=== PATIENT | female | born 1995 | race Caucasian/White ===

== ENCOUNTER 2017-09-01 09:15 | Inpatient (IN) | payer MEDICAID, OTHER ==
[~2017-09-01] VITALS: Ht 152.4 cm; Wt 70.0 kg
[~2017-09-01 09:15] MED LIST: DENIES; FER325 PO; IBUP-1542 PO
[2017-09-01 09:16] VITALS: Ht 152.4 cm; Wt 70.0 kg
[2017-09-01] MEDS ORDERED: METOCLOPRAMIDE 10 MG INJ IV ONE (09:30)
[2017-09-01] MEDS ORDERED: SOD CHLORIDE 0.9% 1,000 ML IV ONE (09:30)
--- NOTE | 2017-09-01 10:19 | RADRPT ---
PROCEDURE: US OB. CLINICAL INDICATION: Pelvic pain. TECHNIQUE: Transabdominal and transvaginal imaging of the uterus was performed. COMPARISON: 11/09/2015. FINDINGS: A single intrauterine is present with identification of a gestational sac, pole, and yolk sac. [place] rump length measures 5.3 cm, corresponding to a gestational age of 12 weeks 0 days. Real time examination shows cardiac activity. The heart rate is 179 beats per minute. No myoma or adnexal mass. Bilateral ovaries are not seen. IMPRESSION: Single viable intrauterine gestation of approximately 12 weeks 0 days. The estimated date of delive ry is 03/16/2017 on the basis of this examination. Examination is within normal limits. RPTAT: EE .Ryan Dodge MD, Date Time Electronically viewed and signed by .Ryan Dodge MD, MD on 09/01/2017 10:19 .C/
[2017-09-01 10:24] LABS: ABNORMAL IP MESSAGE 1; BASOPHILS % 0.1 % (0.0-2.0); EOSINOPHILS % 0.2 % (0.0-7.0); HEMATOCRIT 33.1 % (37.0-47.0); HEMOGLOBIN 11.4 g/dl (12.0-16.0); LYMPHOCYTES # 0.6 10^3/ul (0.8-2.9); LYMPHOCYTES % 4.4 % (18.0-55.0); MEAN CORPUSCULAR HEMOGLOBIN 29.8 pg (29.0-33.0); MEAN CORPUSCULAR HGB CONC 34.4 g/dl (32.0-37.0); MEAN CORPUSCULAR VOLUME 86.6 fl (72.0-104.0); MEAN PLATELET VOLUME 10.2 fl (7.4-10.4); MONOCYTE # 0.6 10^3/ul (0.3-0.9); NEUTROPHIL # 11.2 10^3/ul (1.6-7.5); NEUTROPHILS % 89.8 % (30.0-74.0); PLATELET COUNT 195 10^3/UL (140-415); RED BLOOD COUNT 3.82 10^6/ul (4.20-5.40); RED CELL DISTRIBUTION WIDTH 12.9 % (11.5-14.5); WHITE BLOOD COUNT 12.4 10^3/ul (4.8-10.8)
[2017-09-01 10:35] LABS: POSITIVE DIFF @See below
--- NOTE | 2017-09-01 10:42 | RADRPT ---
PROCEDURE: US Abdomen. CLINICAL INDICATION: Abdominal pain TECHNIQUE: Multiple real-time images were acquired of the patient's abdomen and retroperitoneum ut ilizing a high resolution transducer. COMPARISON: None FINDINGS: The liver demonstrates normal echogenicity and normal size . No focal hepatic lesions. Patent portal vein. Normal gallbladder without gallstones, pericholecystic fluid or gallbladder wall thickening. Negative sonographic Raines's sign. No intrahepatic or extrahepatic biliary dilatation. The common bile duct measures 3.3 mm in maximal dimension. The visualized portions of the pancreas are normal . Normal spleen size and normal echogenicity measuring 11.3 cm. The kidneys are normal size, and demonstrate normal echogenicity and morphology. The right kidney m easures 11.2 cm. The left kidney measures 11.5 cm. No hydronephrosis or perinephric fluid collecti ons. There are no areas of increased echogenicity to suggest nephrolithiasis. Normal caliber aorta and IVC. No peritoneal free fluid. IMPRESSION: Normal abdominal ultrasound. RPTAT:AAJJ Physician Vazquez Date Time Electronically viewed and signed by Physician Vazquez on 09/01/2017 10:41 /
[2017-09-01 10:47] LABS: ALBUMIN 4.1 g/dl (3.3-4.9); ALBUMIN/GLOBULIN RATIO 1.13; BILIRUBIN,INDIRECT 1.1 mg/dl (0-1.1); BILIRUBIN,TOTAL 1.1 mg/dl (0.2-1.3); CALCIUM 9.2 mg/dl (8.4-10.2); CREATININE 0.59 mg/dl (0.44-1.00); POTASSIUM 3.6 mmol/L (3.5-5.1); TOTAL PROTEIN 7.7 g/dl (6.1-8.1)
[2017-09-01 10:48] LABS: ADD UMIC YES; UR ASCORBIC ACID NEGATIVE (NEGATIVE); UR BACTERIA FEW /HPF (NONE SEEN); UR BILIRUBIN (Dip) NEGATIVE (NEGATIVE); UR BLOOD (Dip) 2+ mg/dL (NEGATIVE); UR CLARITY CLOUDY (CLEAR); UR COLOR AMBER (YELLOW); UR GLUCOSE (Dip) NEGATIVE (NEGATIVE); UR KETONES (Dip) TRACE mg/dL (NEGATIVE); UR LEUKOCYTE ESTERASE (Dip) 3+ Leu/ul (NEGATIVE); UR MUCUS MANY /HPF (NONE SEEN); UR NITRITE (Dip) POSITIVE (NEGATIVE); UR NONSQUAMOUS EPITHELIAL CELL 5 /HPF (NONE SEEN); UR RBC 9 /HPF (0-5); UR SPECIFIC GRAVITY (Dip) 1.013 (1.003-1.030); UR SQUAMOUS EPITHELIAL CELL MANY /HPF (FEW); UR TOTAL PROTEIN (Dip) 2+ mg/dl (NEGATIVE); UR UROBILINOGEN (Dip) NEGATIVE (NEGATIVE)
[2017-09-01] MEDS ORDERED: CEFTRIAXONE 1 GM/50 ML (PMX) 50 ML IVPB ONE (12:00)
[2017-09-01] MEDS ORDERED: ACETAMINOPHEN 325 MG TAB PO ONE (12:00)
[2017-09-01] MEDS ORDERED: METO10TA92 PO (12:42)
[2017-09-01] MEDS ORDERED: CEPH-443 PO (12:42)
[2017-09-01] MEDS ORDERED: ACET500C5 PO (12:42)
[2017-09-01] MEDS ORDERED: ONDANSETRON 4 MG INJ IV PRN (13:30)
[2017-09-01] MEDS ORDERED: SOD CHLORIDE 0.9% 1,000 ML IV STA (13:30)
[2017-09-01] MEDS ORDERED: ACETAMINOPHEN 325 MG TAB PO PRN (13:30)
--- NOTE | 2017-09-01 13:32 | EN ---
Date/Time of Note Date/Time of Note DATE: 09/01/17 TIME: 13:31 ER Progress Note I have seen and evaluated the patient along with the PA and/or RISK MANAGEMENT SPECIALIST provider. I agree with the evaluation and plan of care. Please see their documentation for full ER course and evaluation. In short: She is approximately 12 weeks who presents with fever, dysuria and flank pain On exam: The patient has a benign abdominal exam without rebound or guarding or peritonitis Assessment and plan: The patient has a diagnosis of pyelonephritis based on clinical exam and urinary tract infection. Given that she is this is consistent with complicated pyelonephritis. While the patient is subjectively feeling better she still has tachycardia. We discussed the case with the on-call labors, Dr. Cruz who agrees with hospitalization. He recommends admission to the medical surgical service and he will consult. Patient has received appropriate IV antibiotics, IV fluids. A second liter of saline was ordered. Accepting care team and consultations: I discussed the current laboratory data, diagnostic imaging and emergency care provided. Admitting team: Dr. Villaseñor Admitting team indication: Insurance directed Consulting services: LIFE SCIENCES TEACHER, DESIREE Mckee MD Sep 01, 2017 13:32
--- NOTE | 2017-09-01 14:34 | ERA ---
ER Documentation Chief Complaint Date/Time DATE: 09/01/17 TIME: 14:26 Chief Complaint 11 weeks pregnat with ap HPI 22-year-old female patient who is a who is currently presents to the ED complaining of right flank pain that radiates to her right lower abdomen that started earlier this morning. Patient reports that she also has a few episodes of nonbilious nonbloody vomiting. States that she goes to a [facility] on [place] and [address] but is unsure of the name of her [facility]. Denies any vaginal bleeding, vaginal discharge, dysuria, urgency, frequency, hematuria. She reports that her last menstruation was sometime in May 2017. ROS All systems reviewed and are negative except as per history of present illness. Medications Home Meds Active Scripts Cephalexin* (Keflex*) 500 Mg Capsule, 500 MG PO Q8 for 14 Days, #42 CAP Prov:AIYANA BUITRAGO 09/04/17 Ferrous Sulfate* (Ferrous Sulfate*) 325 Mg Tabec, 325 MG PO DAILY, #30 TAB Prov:PHIL YOUNGER CLERICAL ADVISER 11/09/15 Discontinued Reported Medications [Denies] No Conflict Check 12/24/10 Discontinued Scripts Ibuprofen* (Motrin*) 600 Mg Tab, 600 MG PO Q6H Y for PAIN AND OR ELEVATED TEMP, #30 TAB Prov:PHIL YOUNGER CLERICAL ADVISER 11/09/15 Allergies Allergies: Coded Allergies: No Known Allergies (Verified Allergy, Mild, 09/01/17) PMhx/Soc Medical and Surgical Hx: pt denies Medical Hx, pt denies Surgical Hx History of Surgery: No Anesthesia Reaction: No Hx Neurological Disorder: No Hx Respiratory Disorders: No Hx Cardiac Disorders: No Hx Psychiatric Problems: No Hx Miscellaneous Medical Probl: No Hx Alcohol Use: No Hx Substance Use: Yes (marijuana) Hx Tobacco Use: Yes (occasionally) Smoking Status: Former smoker Physical Exam Vitals Vital Signs Date Time Temp Pulse Resp B/P Pulse Ox O2 Delivery O2 Flow Rate FiO2 09/01/17 09:16 99.9 120 18 100/60 99 Physical Exam Const: [id number], well-nourished. In no acute distress. Head: Atraumatic, normocephalic Eyes: Normal Conjunctiva without injection. No purulent discharge. ENT: Normal external ear, nose. Moist oropharynx without tonsillar exudates. Non -erythematous pharynx. Uvula midline. No drooling. No trismus. Neck: No cervical midline tenderness. Full range of motion. No meningismus. No cervical lymphadenopathy. No JVD. Resp: Clear to auscultation bilaterally. No wheezing, rhonchi, rales, or crackles. No accessory muscle use. No retractions. Cardio: Regular rate and rhythm. No murmurs, rubs or gallops. Abd: Soft, nontender, non distended. Normal bowel sounds. No palpable masses. No rebound tenderness. No guarding. Negative McBurney's point. Negative psoas sign. Negative obturator sign. Skin: No petechiae or rashes Back: No midline tenderness. No CVA tenderness. Ext: No cyanosis, or edema. Neur: Awake and alert. Normal gait. Normal coordination. Psych: Normal Mood and Affect Result Diagram: 09/04/1741 09/04/1741 Results 24 hrs Laboratory Tests Test 09/01/17 09:50 09/01/17 09:58 Urine Color JEREMIAH Urine Clarity CLOUDY Urine pH 6.0 Urine Specific [place] 1.013 Urine Ketones TRACEmg/dL Urine Nitrite POSITIVEmg/dL Urine Bilirubin NEGATIVEmg/dL Urine Urobilinogen NEGATIVEmg/dL Urine Leukocyte Esterase 3+Pablo/ul Urine Microscopic RBC 9/HPF Urine Microscopic WBC > 182/HPF Urine Squamous Epithelial Cells MANY/HPF Urine Bacteria FEW/HPF Urine Mucus MANY/HPF Urine Hemoglobin 2+mg/dL Urine Glucose NEGATIVEmg/dL Urine Total Protein 2+mg/dl White Blood Count 12.410^3/ul Red Blood Count 3.8210^6/ul Hemoglobin 11.4g/dl Hematocrit 33.1% Mean Corpuscular Volume 86.6fl Mean Corpuscular Hemoglobin 29.8pg Mean Corpuscular Hemoglobin Concent 34.4g/dl Red Cell Distribution Width 12.9% Platelet Count 91797^3/UL Mean Platelet Volume 10.2fl Neutrophils % 89.8% Lymphocytes % 4.4% Monocytes % 5.0% Eosinophils % 0.2% Basophils % 0.1% Nucleated Red Blood Cells % 0.0/100WBC Neutrophils # 11.210^3/ul Lymphocytes # 0.610^3/ul Monocytes # 0.610^3/ul Eosinophils # 0.010^3/ul Basophils # 0.010^3/ul Nucleated Red Blood Cells # 0.010^3/ul Sodium Level 134mmol/L Potassium Level 3.6mmol/L Chloride Level 103mmol/L Carbon Dioxide Level 21mmol/L Anion Gap 14 Blood Urea Nitrogen 5mg/dl Creatinine 0.59mg/dl Glucose Level 107mg/dl Calcium Level 9.2mg/dl Total Bilirubin 1.1mg/dl Direct Bilirubin 0.00mg/dl Indirect Bilirubin 1.1mg/dl Aspartate Amino Transf (AST/SGOT) 17IU/L Alanine Aminotransferase (ALT/SGPT) 30IU/L Alkaline Phosphatase 51IU/L Total Protein 7.7g/dl Albumin 4.1g/dl Globulin 3.60g/dl Albumin/Globulin Ratio 1.13 Lipase 43U/L Beta HCG, Quantitative 74341.0mIU/ml Current Medications Medications (Trade) Dose Ordered Sig/Nelly Route PRN Reason Start Time Stop Time Status Last Admin Dose Admin Sodium Chloride (NS) 1,000 ml @ 1,000 mls/hr Q1H ONCE IV 09/01/17 09:30 09/01/17 10:29 DC 09/01/17 10:33 Metoclopramide HCl 10 mg 10 mg ONCE ONCE IV 09/01/17 09:30 09/01/17 09:34 DC 09/01/17 10:33 Ceftriaxone Sodium (Rocephin) 50 ml @ 100 mls/hr ONCE ONCE IVPB 09/01/17 12:00 09/01/17 12:29 DC 09/01/17 12:07 Acetaminophen (Tylenol Tab) 650 mg ONCE ONCE PO 09/01/17 12:00 09/01/17 12:01 DC 09/01/17 12:07 Procedures/MDM 22-year-old female patient who is a presents to the ED complaining of right flank pain that radiates to her lower abdomen that started earlier this morning. Patient is afebrile nontoxic appearing. Patient has normal vital signs. An ultrasound, beta-hCG, CBC, type and RH, UA was ordered to evaluate patient. CBC: Leukocytosis 12.4. No anemia Urine: No elevation in nitrites, leukocyte esterase, hematuria. No evidence of UTI Rh: O positive. No indication for Rhogam at this time. beta Hc PROCEDURE: US Abdomen. CLINICAL INDICATION: Abdominal pain TECHNIQUE: Multiple real-time images were acquired of the patient's abdomen and retroperitoneum utilizing a high resolution transducer. COMPARISON: None FINDINGS: The liver demonstrates normal echogenicity and normal size . No focal hepatic lesions. Patent portal vein. Normal gallbladder without gallstones, pericholecystic fluid or gallbladder wall thickening. Negative sonographic Raines's sign. No intrahepatic or extrahepatic biliary dilatation. The common bile duct measures 3.3 mm in maximal dimension. The visualized portions of the pancreas are normal. Normal spleen size and normal echogenicity measuring 11.3 cm. The kidneys are normal size, and demonstrate normal echogenicity and morphology. The right kidney measures 11.2 cm. The left kidney measures 11.5 cm. No hydronephrosis or perinephric fluid collections. There are no areas of increased echogenicity to suggest nephrolithiasis. Normal caliber aorta and IVC. No peritoneal free fluid. IMPRESSION: Normal abdominal ultrasound. PROCEDURE: US OB. CLINICAL INDICATION: Pelvic pain. TECHNIQUE: Transabdominal and transvaginal imaging of the uterus was performed. COMPARISON: 11/09/2015. FINDINGS: A single intrauterine is present with identification of a gestational sac, pole, and yolk sac. [place] rump length measures 5.3 cm, corresponding to a gestational age of 12 weeks 0 days. Real time examination shows cardiac activity. The heart rate is 179 beats per minute. No myoma or adnexal mass. Bilateral ovaries are not seen. IMPRESSION: Single viable intrauterine gestation of approximately 12 weeks 0 days. The estimated date of delivery is 03/16/2017 on the basis of this examination. Examination is within normal limits. Patient's bleeding symptoms have stabilized while in the department.Patient has pyelonephritis based on her urinary tract infection and positive CVA tenderness. Patient has persistent tachycardia despite being treated with 1 L of normal saline. Patient does feel better after receiving Ceftriaxone, Tylenol here in the ED however due to her , she has a complicated pyelonephritis. The benefits of staying and getting admitted to the ED outweigh discharged here at the hospital. This was discussed with my supervising physician, Dr. Del Real as well as the laborist on-call, Dr. Cruz who agreed with the management. Patient will be admitted under medicine service for further evaluation and treatment. Patient has a viable at 12 weeks. Low suspicion for symptomatic anemia, ectopic , sepsis, PID, appendicitis, ovarian torsion, tubo-ovarian abscess, surgical abdomen, or other emergent conditions. Patient agreed with the admission plan. Patient is hemodynamically stable. Departure Diagnosis: Primary Impression: Right flank pain Condition: Stable MIKE BUSH PA-C Sep 01, 2017 14:34 Patient does feel better after receiving ceftriaxone, Tylenol here in the ED however due to her , she has a complicated pyelonephritis. The benefits of staying and getting admitted to the ED outweigh discharged here at the hospital. This was discussed with my supervising physician, Dr. del real as well as the glabrous on-call, Dr. Carlos Mills who agreed with the management. Patient will be admitted under medicine service for further evaluation and treatment. Patient has a viable at 12 weeks. Low suspicion for symptomatic anemia, ectopic , sepsis, PID, appendicitis, ovarian torsion, tubo-ovarian abscess, surgical abdomen, or other emergent conditions. Departure Diagnosis: Primary Impression: Right flank pain Condition: Stable MIKE BUSH PA-C Sep 01, 2017 14:34
--- NOTE | 2017-09-01 14:37 | HP ---
Date/Time of Note Date/Time of Note DATE: 09/01/17 TIME: 14:36 Assessment/Plan VTE Prophylaxis VTE Prophylaxis Intervention: SCD's Assessment/Plan Assessment/Plan 1. Right flank pain secondary to Pyelonephritis - UA + and urine cultures sent - Dr. Cruz from OB consulted by ED and agree with admission and IV antibiotics - Will give Ceftriaxone IV daily and if remains afebrile for 48 hours, will change to cephalexin PO prior to discharge - IVF NSS for gentle hydration - Reglan PRN for nausea 2. Intrauterine - Patient is currently 12 weeks with first child - Will avoid any teratogenic medications - OB consulted and appreciated input - Started on vitamins 3. Iron deficiency anemia most likely associated with - Will continue on iron supplements - monitor H/H daily 4. Leukocytosis secondary to #1 5. Diet - regular 6. DVT ppx - SCD 7. Code status - Full 8. Disposition - Admit to med/surg for IV antibiotic treatment >35 minutes was spent with patient at time of admission. All labs and imaging were personally reviewed. All patients questions were answered. HPI/ROS Admit Date/Time Admit Date/Time 09/01/17 Hx of Present Illness 22 yo F presented c/o nausea, vomiting, right flank pain, and dysuria for the past 1 day. Patient states she had severe right sided pain both anteriorly and flank area that has persisted since yesterday. She last vomited yesterday and was able to tolerate a sandwich in the ED. She denies any sick contact, dizziness, headache, chest pain, shortness of breath, or other abdominal issues. Does admit to discomfort with urination but denies any hematuria or discharge. This is patients first . ROS Constitutional: febrile, nausea, No chills, No diaphoresis, No disoriented, No fatigue Eyes: no complaints ENT: No discharge, No dysphagia, No sore throat Respiratory: No cough, No pain, No shortness of breath, No sputum, No wheezing Cardiovascular: No chest pain, No edema, No lightheadedness, No orthopenea, No palpitations Gastrointestinal: nausea, pain (right quadrant), vomiting, No constipation, No diarrhea Genitourinary: dysuria, flank pain, No bleeding, No discharge, No hematuria Musculoskeletal: No bone/joint pain, No neck pain, No swelling Skin: No erythema, No pruritis, No rash Neurologic: no complaints Endocrine: no complaints Lymphatic: no complaints Psychological: no complaints Immunologic: no complaints PMH/Family/Social Past Medical History Medical History: no pertinent history Past Surgical History Past Surgical Hx: no surgical history Family History Significant Family History: no pertinent family hx Social History Alcohol Use: none Smoking Status: Former smoker Drug Use: none Exam/Review of Systems Vital Signs Vitals Vital Signs Date Time Temp Pulse Resp B/P Pulse Ox O2 Delivery O2 Flow Rate FiO2 09/01/17 09:16 99.9 120 18 100/60 99 Exam Constitutional: alert, distress, oriented Psych: nl mood/affect Head: atraumatic, normocephalic Eyes: EOMI, PERRL, nl sclera ENMT: mucosa pink and moist, nl external ears & nose Neck: non-tender, supple Respiratory: clear to auscultation, normal air movement, No crackles/rales, No diminished breath sounds, No labored breathing, No wheezing Cardiovascular: nl pulses, other (tachycardia), No edema, No murmurs/extra sounds Gastrointestinal: bowel sounds, distended, soft, tender (right quadrant), No ascites, No rebound or guarding Musculoskeletal: nl extremities to inspection, No muscle weakness, No swelling Extremities: No calf tenderness, No clubbing, No cyanosis, No edema Neurological: COUNTER CUTTER II-XII intact, nl mental status, No confused, No focal weakness Skin: nl turgor, No ecchymosis, No laceration Lymph: nl lymph nodes Labs Result Diagram: 09/01/1795709/01/17957 Medications Medications home medications reviewed Procedures Procedures PROCEDURE: US OB. CLINICAL INDICATION: Pelvic pain. TECHNIQUE: Transabdominal and transvaginal imaging of the uterus was performed. COMPARISON: 11/09/2015. FINDINGS: A single intrauterine is present with identification of a gestational sac, pole, and yolk sac. [place] rump length measures 5.3 cm, corresponding to a gestational age of 12 weeks 0 days. Real time examination shows cardiac activity. The heart rate is 179 beats per minute. No myoma or adnexal mass. Bilateral ovaries are not seen. IMPRESSION: Single viable intrauterine gestation of approximately 12 weeks 0 days. The estimated date of delivery is 03/16/2017 on the basis of this examination. Examination is within normal limits. PROCEDURE: US Abdomen. CLINICAL INDICATION: Abdominal pain TECHNIQUE: Multiple real-time images were acquired of the patient's abdomen and retroperitoneum utilizing a high resolution transducer. COMPARISON: None FINDINGS: The liver demonstrates normal echogenicity and normal size . No focal hepatic lesions. Patent portal vein. Normal gallbladder without gallstones, pericholecystic fluid or gallbladder wall thickening. Negative sonographic Raines's sign. No intrahepatic or extrahepatic biliary dilatation. The common bile duct measures 3.3 mm in maximal dimension. The visualized portions of the pancreas are normal. Normal spleen size and normal echogenicity measuring 11.3 cm. The kidneys are normal size, and demonstrate normal echogenicity and morphology. The right kidney measures 11.2 cm. The left kidney measures 11.5 cm. No hydronephrosis or perinephric fluid collections. There are no areas of increased echogenicity to suggest nephrolithiasis. Normal caliber aorta and IVC. No peritoneal free fluid. IMPRESSION: Normal abdominal ultrasound. TORRES LUJAN MD Sep 01, 2017 14:37
[2017-09-01] MEDS ORDERED: METOCLOPRAMIDE 10 MG INJ IV PRN (15:00)
[2017-09-01] MEDS ORDERED: NACL 0.9% 3 ML SYG IV SCH (15:00)
[2017-09-01] MEDS ORDERED: DOCUSATE SODIUM 100 MG CAP PO PRN (15:00)
[2017-09-01 15:31] VITALS: BP 107/54; RESP 18
[2017-09-01] MEDS: SOD CHLORIDE 0.9% 1,000 ML IV SCH (15:58)
[2017-09-01 19:32] VITALS: BP 113/49; RESP 16
[2017-09-02 02:00] VITALS: BP 90/54; RESP 18
[2017-09-02 06:16] LABS: ABNORMAL IP MESSAGE 1; BASOPHILS % 0.1 % (0.0-2.0); EOSINOPHILS % 0.1 % (0.0-7.0); HEMATOCRIT 29.4 % (37.0-47.0); HEMOGLOBIN 10.3 g/dl (12.0-16.0); LYMPHOCYTES # 0.5 10^3/ul (0.8-2.9); LYMPHOCYTES % 5.3 % (18.0-55.0); MEAN CORPUSCULAR VOLUME 88.6 fl (72.0-104.0); MEAN PLATELET VOLUME 10.6 fl (7.4-10.4); MONOCYTE # 0.4 10^3/ul (0.3-0.9); MONOCYTES % 4.8 % (0.0-13.0); NEUTROPHIL # 7.6 10^3/ul (1.6-7.5); NEUTROPHILS % 89.2 % (30.0-74.0); PLATELET COUNT 135 10^3/UL (140-415); RED BLOOD COUNT 3.32 10^6/ul (4.20-5.40); RED CELL DISTRIBUTION WIDTH 12.9 % (11.5-14.5); WHITE BLOOD COUNT 8.6 10^3/ul (4.8-10.8)
[2017-09-02 06:18] LABS: POSITIVE DIFF @See below
[2017-09-02 06:20] LABS: CALCIUM 8.1 mg/dl (8.4-10.2); CREATININE 0.54 mg/dl (0.44-1.00); MAGNESIUM 1.6 mg/dl (1.7-2.5); POTASSIUM 3.3 mmol/L (3.5-5.1)
[2017-09-02 07:59] VITALS: BP 107/64; RESP 18
[2017-09-02] MEDS ORDERED: POTASSIUM CHLORIDE (SR) 20 MEQ TAB PO STA (08:11)
[2017-09-02] MEDS: SOD CHLORIDE 0.9% 1,000 ML IV SCH ×2 (08:32→23:51)
[2017-09-02] MEDS: FERROUS SULFATE (EC) 325 MG TAB PO SCH (08:32)
[2017-09-02] MEDS: PRENATAL VITAMIN PO SCH (08:32)
--- NOTE | 2017-09-02 08:43 | PN ---
Date/Time of Note Date/Time of Note DATE: 09/02/17 TIME: 08:39 Assessment/Plan VTE Prophylaxis VTE Prophylaxis Intervention: ambulation Lines/Catheters IV Catheter Type (from Nrsg): Peripheral IV Assessment/Plan Assessment/Plan 1. Right flank pain secondary to Pyelonephritis - Patient spiked fever of 101.3 and blood cultures sent - UA + and urine cultures still pending - Dr. Cruz from OB consulted by ED and agree with admission and IV antibiotics. Awaiting further recommendations - Continue on Ceftriaxone IV daily and if remains afebrile for 48 hours, will change to cephalexin PO prior to discharge - IVF NSS for gentle hydration - Reglan PRN for nausea 2. Intrauterine - Patient is currently 12 weeks with first child - Will avoid any teratogenic medications - OB consulted - Started on vitamins 3. Iron deficiency anemia most likely associated with - Will continue on iron supplements - monitor H/H daily 4. Hypokalemia - Replaced 5. HypoMg - Replaced 6. Disposition - Will continue on IV antibiotics and when afebrile for at least 48hr will switch to PO prior to d/c Subjective 24 Hr Interval Summary Free Text/Dictation Patient experienced fever of 101.3 and blood cultures sent. still c/o pain in right quadrant but denies any further episodes of nausea and vomiting. No acute overnight events. Exam/Review of Systems Vital Signs Vitals Vital Signs Date Time Temp Pulse Resp B/P Pulse Ox O2 Delivery O2 Flow Rate FiO2 09/02/17 07:59 101.3 119 18 107/64 98 Intake and Output 09/01/17 09/01/17 09/02/17 15:00 23:00 07:00 Intake Total 600 ml 660 ml Balance 600 ml 660 ml Exam Constitutional: alert, oriented Eyes: EOMI, PERRL, nl sclera ENMT: mucosa pink and moist, nl external ears & nose Neck: non-tender, supple Respiratory: clear to auscultation, normal air movement, No crackles/rales, No diminished breath sounds, No labored breathing, No wheezing Cardiovascular: nl pulses, other (tachycardia), No edema, No murmurs/extra sounds Gastrointestinal: bowel sounds, distended, soft, tender (right quadrant), No ascites, No rebound or guarding Musculoskeletal: nl extremities to inspection, No muscle weakness, No swelling Extremities: No calf tenderness, No clubbing, No cyanosis, No edema Neurological: ARMED GUARD II-XII intact, nl mental status, No confused, No focal weakness Skin: pale, diaphoretic, nl turgor, No ecchymosis, No laceration Lymph: nl lymph nodes Results Result Diagram: 09/02/17 0510 09/02/17509 Results 24 hrs Laboratory Tests Test 09/01/17 09:50 09/01/17 09:58 09/02/17 05:10 Urine Color JEREMIAH Urine Clarity CLOUDY A Urine pH 6.0 Urine Specific [place] 1.013 Urine Ketones TRACE A Urine Nitrite POSITIVE A Urine Bilirubin NEGATIVE Urine Urobilinogen NEGATIVE Urine Leukocyte Esterase 3+ H Urine Microscopic RBC 9 H Urine Microscopic WBC > 182 H Urine Squamous Epithelial Cells MANY A Urine Bacteria FEW A Urine Mucus MANY A Urine Hemoglobin 2+ H Urine Glucose NEGATIVE Urine Total Protein 2+ H White Blood Count 12.4 H 8.6 # Red Blood Count 3.82 L 3.32 L Hemoglobin 11.4 L 10.3 L Hematocrit 33.1 L 29.4 L Mean Corpuscular Volume 86.6 88.6 Mean Corpuscular Hemoglobin 29.8 31.0 Mean Corpuscular Hemoglobin Concent 34.4 35.0 Red Cell Distribution Width 12.9 12.9 Platelet Count 195 135 #L Mean Platelet Volume 10.2 # 10.6 H Neutrophils % 89.8 H 89.2 H Lymphocytes % 4.4 L 5.3 L Monocytes % 5.0 4.8 Eosinophils % 0.2 0.1 Basophils % 0.1 0.1 Nucleated Red Blood Cells % 0.0 0.0 Neutrophils # 11.2 H 7.6 H Lymphocytes # 0.6 L 0.5 L Monocytes # 0.6 0.4 Eosinophils # 0.0 0.0 Basophils # 0.0 0.0 Nucleated Red Blood Cells # 0.0 0.0 Sodium Level 134 L 134 L Potassium Level 3.6 3.3 L Chloride Level 103 109 Carbon Dioxide Level 21 20 L Anion Gap 14 8 Blood Urea Nitrogen 5 L 3 L Creatinine 0.59 0.54 Glucose Level 107 96 Calcium Level 9.2 8.1 L Total Bilirubin 1.1 Direct Bilirubin 0.00 Indirect Bilirubin 1.1 Aspartate Amino Transf (AST/SGOT) 17 Alanine Aminotransferase (ALT/SGPT) 30 Alkaline Phosphatase 51 Total Protein 7.7 Albumin 4.1 Globulin 3.60 H Albumin/Globulin Ratio 1.13 Lipase 43 Beta HCG, Quantitative 82932.0 Phosphorus Level 3.0 Magnesium Level 1.6 L Medications Medications Current Medications Ferrous Sulfate (Ferrous Sulfate (Ec)) 325 mg DAILY PO Last administered on 08:32; Admin Dose 325 MG; Start 09/02/17 at 09:00 Prenat Multivit/ [place]/Iron/Folic Ac 1 tab 1 tab DAILY PO Last administered on 09/02/17 08:32; Admin Dose 1 TAB; Start 09/02/17 at 09:00 Sodium Chloride (NS) 1,000 ml @ 60 mls/hr [id number] IV Last administered on 09/02 08:32; Admin Dose 60 MLS/HR; Start 09/01/17 at 14:31 Metoclopramide HCl (Reglan) 10 mg Q6H PRN IV NAUSEA AND/OR VOMITING; Start 09/01/17 at 15:00 Acetaminophen (Tylenol Tab) 650 mg Q6H PRN PO PAIN LEVEL 1-3 OR FEVER; Start 09/01/17 at 15:00 Docusate Sodium 100 mg 100 mg Q12H PRN PO CONSTIPATION; Start 09/01/17 at 15:00 Ceftriaxone Sodium (Rocephin) 50 ml @ 100 mls/hr Q24H IVPB ; Start 09/02/17 at 12:00 Potassium Chloride (Klor-Con 20) 40 meq 1215 ONCE PO ; Start 09/02/17 at 12:15 ; Stop 09/02/17 at 12:16 TORRES LUJAN MD Sep 02, 2017 08:43
[2017-09-02] MEDS ORDERED: MAGNESIUM SULFATE 2 GM/50 ML 50 ML IVPB ONE (09:30)
[2017-09-02] MEDS ORDERED: POTASSIUM CHLORIDE (SR) 20 MEQ TAB PO ONE (12:15)
--- NOTE | 2017-09-02 12:44 | QN ---
Documentation Comment Painter And Body Mechanic Apprentice consult: Thank you for consulting with us. 22 yo @12+WKS GA with dysuria and flank pain and Dx of pyelonephritis VS stable Gen NAD Abd soft NT ND +CVA tenderness Ultrasound 12 wks viable A/P 12 wks GA with Pyelonephritis 1.Continue Antibiotics 2.If there is any new symptoms ,p-lease let Painter And Body Mechanic Apprentice team know([id number]) 3.Discharge plan if afebrile for 24-48 hours 4.F/u on Urine culture 5.Abdominal amd kidney ultrasound NELLI SOUTH M.D. Sep 02, 2017 12:44
[2017-09-02] MEDS: CEFTRIAXONE 1 GM/50 ML (PMX) 50 ML IVPB SCH (13:32)
[2017-09-02 13:52] VITALS: BP 98/57; RESP 18
[2017-09-02] MEDS: ACETAMINOPHEN 325 MG TAB PO PRN ×2 (16:25→22:30)
[2017-09-02 20:00] VITALS: BP 99/55; RESP 18
[2017-09-03 02:20] VITALS: BP 97/53; RESP 18
[2017-09-03 05:11] LABS: BASOPHILS % 0.3 % (0.0-2.0); EOSINOPHILS # 0.2 10^3/ul (0.0-0.5); EOSINOPHILS % 2.3 % (0.0-7.0); HEMATOCRIT 31.3 % (37.0-47.0); HEMOGLOBIN 10.5 g/dl (12.0-16.0); MEAN CORPUSCULAR HEMOGLOBIN 29.9 pg (29.0-33.0); MEAN CORPUSCULAR HGB CONC 33.5 g/dl (32.0-37.0); MEAN CORPUSCULAR VOLUME 89.2 fl (72.0-104.0); MEAN PLATELET VOLUME 10.6 fl (7.4-10.4); MONOCYTE # 0.5 10^3/ul (0.3-0.9); MONOCYTES % 7.2 % (0.0-13.0); NEUTROPHIL # 5.1 10^3/ul (1.6-7.5); NEUTROPHILS % 74.8 % (30.0-74.0); PLATELET COUNT 141 10^3/UL (140-415); RED BLOOD COUNT 3.51 10^6/ul (4.20-5.40); RED CELL DISTRIBUTION WIDTH 13.3 % (11.5-14.5); WHITE BLOOD COUNT 6.8 10^3/ul (4.8-10.8)
[2017-09-03 05:16] LABS: CALCIUM 8.3 mg/dl (8.4-10.2); CREATININE 0.54 mg/dl (0.44-1.00); MAGNESIUM 1.9 mg/dl (1.7-2.5); PHOSPHORUS 3.2 mg/dl (2.5-4.9)
[2017-09-03 07:35] VITALS: BP 89/52; RESP 16
[2017-09-03] MEDS: PRENATAL VITAMIN PO SCH (08:26)
[2017-09-03] MEDS: ACETAMINOPHEN 325 MG TAB PO PRN ×2 (08:26→14:02)
[2017-09-03] MEDS: FERROUS SULFATE (EC) 325 MG TAB PO SCH (08:26)
--- NOTE | 2017-09-03 10:02 | PN ---
Date/Time of Note Date/Time of Note DATE: 09/03/17 TIME: 10:01 Assessment/Plan VTE Prophylaxis VTE Prophylaxis Intervention: SCD's Lines/Catheters IV Catheter Type (from Nrsg): Peripheral IV Assessment/Plan Chief Complaint/Hosp Course 1. Right flank pain secondary to Pyelonephritis - Patient spiked fever of 101.3 and blood cultures sent yesterday - UA + and urine cultures show ecoli - Dr. Cruz from OB consulted by ED and agree with admission and IV antibiotics. Awaiting further recommendations - Continue on Ceftriaxone IV daily and if remains afebrile for 48 hours, will change to cephalexin PO prior to discharge - IVF NSS for gentle hydration - Reglan PRN for nausea 2. Intrauterine - Patient is currently 12 weeks with first child - Will avoid any teratogenic medications - OB consulted - Started on vitamins 3. Iron deficiency anemia most likely associated with - Will continue on iron supplements - monitor H/H daily 4. Hypokalemia - Replaced 5. HypoMg - Replaced 6. Disposition - Will continue on IV antibiotics and when afebrile for at least 48hr will switch to PO prior to d/c Problems: Exam/Review of Systems Vital Signs Vitals Vital Signs Date Time Temp Pulse Resp B/P Pulse Ox O2 Delivery O2 Flow Rate FiO2 09/03/17 07:35 98.6 89 16 89/52 98 Intake and Output 09/02/17 09/02/17 09/03/17 15:00 23:00 07:00 Intake Total 100 ml 2100 ml 1160 ml Balance 100 ml 2100 ml 1160 ml Results Result Diagram: 09/03/17 0426 09/03/17 0429 Results 24 hrs Laboratory Tests Test 09/03/17 04:26 09/03/17 04:29 White Blood Count 6.8 # Red Blood Count 3.51 L Hemoglobin 10.5 L Hematocrit 31.3 L Mean Corpuscular Volume 89.2 Mean Corpuscular Hemoglobin 29.9 Mean Corpuscular Hemoglobin Concent 33.5 Red Cell Distribution Width 13.3 Platelet Count 141 Mean Platelet Volume 10.6 H Neutrophils % 74.8 H Lymphocytes % 15.0 L Monocytes % 7.2 Eosinophils % 2.3 Basophils % 0.3 Nucleated Red Blood Cells % 0.0 Neutrophils # 5.1 Lymphocytes # 1.0 Monocytes # 0.5 Eosinophils # 0.2 Basophils # 0.0 Nucleated Red Blood Cells # 0.0 Sodium Level 136 Potassium Level 4.0 Chloride Level 110 Carbon Dioxide Level 21 Anion Gap 9 Blood Urea Nitrogen 4 L Creatinine 0.54 Glucose Level 86 Calcium Level 8.3 L Phosphorus Level 3.2 Magnesium Level 1.9 Albumin 3.0 #L Medications Medications Current Medications Ferrous Sulfate (Ferrous Sulfate (Ec)) 325 mg DAILY PO Last administered on 08:26; Admin Dose 325 MG; Start 09/02/17 at 09:00 Prenat Multivit/ Guard Manager/Iron/Folic Ac 1 tab 1 tab DAILY PO Last administered on 09/03/17 08:26; Admin Dose 1 TAB; Start 09/02/17 at 09:00 Sodium Chloride (NS) 1,000 ml @ 60 mls/hr [id number] IV Last administered on 09/02 23:51; Admin Dose 60 MLS/HR; Start 09/01/17 at 14:31 Metoclopramide HCl (Reglan) 10 mg Q6H PRN IV NAUSEA AND/OR VOMITING; Start 09/01/17 at 15:00 Acetaminophen (Tylenol Tab) 650 mg Q6H PRN PO PAIN LEVEL 1-3 OR FEVER Last administered on 09/03/17 08:26; Admin Dose 650 MG; Start 09/01/17 at 15:00 Docusate Sodium 100 mg 100 mg Q12H PRN PO CONSTIPATION; Start 09/01/17 at 15:00 Ceftriaxone Sodium (Rocephin) 50 ml @ 100 mls/hr Q24H IVPB Last administered on 09/02/17 13:32; Admin Dose 100 MLS/HR; Start 09/02/17 at 12:00 AIYANA BUITRAGO Sep 03, 2017 10:02
[2017-09-03] MEDS: CEFTRIAXONE 1 GM/50 ML (PMX) 50 ML IVPB SCH (12:11)
--- NOTE | 2017-09-03 13:52 | PN ---
Date/Time of Note Date/Time of Note DATE: 09/03/17 TIME: 13:50 OB Subjective Subjective Subjective Patient denies f/c. Last fever around 16:30 yesterday. OB Objective Objective Objective Gen: NAD Abd: soft, NT Back: no CVAT OB Assessment/Plan Other Assessment: 22 y/o at 12 weeks with pyelonephritis Other plan: Discharge after 24 hour afebrile per primary team. Continue antibiotics for 2 weeks. F/u with OB, consider suppression antibiotics. CHRISTY SHARIF Sep 03, 2017 13:52
[2017-09-03 14:28] VITALS: BP 101/63; RESP 16
[2017-09-03] MEDS: SOD CHLORIDE 0.9% 1,000 ML IV SCH ×2 (16:31→22:35)
--- NOTE | 2017-09-03 17:47 | CONS ---
Date/Time of Note Date/Time of Note DATE: 09/03/17 TIME: 17:44 Assessment/Plan Assessment/Plan Problems: (1) Pyelonephritis affecting in first trimester Status: Acute Comment: This young lady was admitted for IV antibiotic therapy which was indicated and confirmed by our PLACER MINER colleagues. She is receiving IV antibiotics and the cultures demonstrate that she is receiving drugs appropriate for the and for the sensitivities of the isolated bacteria. In addition as clinically she is improving. There was absolute indication for her to be admitted to the hospital. She is approaching the time of discharge in the next 24 hours. As such CCS admission was indicated. Consultation Date/Type/Reason Admit Date/Time 09/01/17 Date of Consultation: Sep 03, 2017 Type of Consultation: CCS Reason for Consultation 22-year-old young lady admitted to the hospital at 12 weeks gestation with pyelonephritis and sepsis. Referring Provider: TORRES LUJAN MD Hx of Present Illness Charming 22-year-old female who was admitted at 12 weeks gestational age with pyelonephritis and sepsis. She was not able to take p.o. adequately coming in. She was admitted to the hospital for intravenous antibiotic therapy. I am asked to see her to verify for CCS purposes that she did need to be admitted. Eyes: no complaints ENT: No discharge, No dysphagia, No sore throat Respiratory: No cough, No pain, No shortness of breath, No sputum, No wheezing Cardiovascular: No chest pain, No edema, No lightheadedness, No orthopenea, No palpitations Gastrointestinal: nausea, pain (right quadrant), vomiting, No constipation, No diarrhea Genitourinary: dysuria, flank pain, No bleeding, No discharge, No hematuria Musculoskeletal: No bone/joint pain, No neck pain, No swelling Skin: No erythema, No pruritis, No rash Neurologic: no complaints Lymphatic: no complaints Psychological: nl mood/affect Immunologic: no complaints Past Medical History Medical History: no pertinent history Past Surgical History Past Surgical Hx: no surgical history Family History Significant Family History: no pertinent family hx Social History Alcohol Use: none Smoking Status: Former smoker Drug Use: none Exam/Review of Systems Vital Signs Vitals Vital Signs Date Time Temp Pulse Resp B/P Pulse Ox O2 Delivery O2 Flow Rate FiO2 09/03/17 14:28 97.9 87 16 101/63 100 Intake and Output 1009/02/17 09/03/17 15:00 23:00 07:00 Intake Total 100 ml 2100 ml 1160 ml Balance 100 ml 2100 ml 1160 ml Exam Constitutional: alert, oriented Respiratory: clear to auscultation, normal air movement Cardiovascular: nl pulses, regular rate and rhythm Results Result Diagram: 09/03/17 0426 09/03/17 0429 Results 24 hrs Laboratory Tests Test 09/03/17 04:26 09/03/17 04:29 White Blood Count 6.8 # Red Blood Count 3.51 L Hemoglobin 10.5 L Hematocrit 31.3 L Mean Corpuscular Volume 89.2 Mean Corpuscular Hemoglobin 29.9 Mean Corpuscular Hemoglobin Concent 33.5 Red Cell Distribution Width 13.3 Platelet Count 141 Mean Platelet Volume 10.6 H Neutrophils % 74.8 H Lymphocytes % 15.0 L Monocytes % 7.2 Eosinophils % 2.3 Basophils % 0.3 Nucleated Red Blood Cells % 0.0 Neutrophils # 5.1 Lymphocytes # 1.0 Monocytes # 0.5 Eosinophils # 0.2 Basophils # 0.0 Nucleated Red Blood Cells # 0.0 Sodium Level 136 Potassium Level 4.0 Chloride Level 110 Carbon Dioxide Level 21 Anion Gap 9 Blood Urea Nitrogen 4 L Creatinine 0.54 Glucose Level 86 Calcium Level 8.3 L Phosphorus Level 3.2 Magnesium Level 1.9 Albumin 3.0 #L Medications Medications Current Medications Ferrous Sulfate (Ferrous Sulfate (Ec)) 325 mg DAILY PO Last administered on 08:26; Admin Dose 325 MG; Start 09/02/17 at 09:00 Prenat Multivit/ [place]/Iron/Folic Ac 1 tab 1 tab DAILY PO Last administered on 09/03/17 08:26; Admin Dose 1 TAB; Start 09/02/17 at 09:00 Sodium Chloride (NS) 1,000 ml @ 60 mls/hr [id number] IV Last administered on 09/02 23:51; Admin Dose 60 MLS/HR; Start 09/01/17 at 14:31 Metoclopramide HCl (Reglan) 10 mg Q6H PRN IV NAUSEA AND/OR VOMITING; Start 09/01/17 at 15:00 Acetaminophen (Tylenol Tab) 650 mg Q6H PRN PO PAIN LEVEL 1-3 OR FEVER Last administered on 09/03/17 14:02; Admin Dose 650 MG; Start 09/01/17 at 15:00 Docusate Sodium 100 mg 100 mg Q12H PRN PO CONSTIPATION; Start 09/01/17 at 15:00 Ceftriaxone Sodium (Rocephin) 50 ml @ 100 mls/hr Q24H IVPB Last administered on 09/03/17 12:11; Admin Dose 100 MLS/HR; Start 09/02/17 at 12:00 LESLEY CORRALES MD Sep 03, 2017 17:47
[2017-09-03 20:00] VITALS: BP 103/62; RESP 18
[2017-09-04 02:03] VITALS: BP 96/55; RESP 18
[2017-09-04 06:23] LABS: BASOPHILS % 0.2 % (0.0-2.0); EOSINOPHILS # 0.2 10^3/ul (0.0-0.5); EOSINOPHILS % 2.6 % (0.0-7.0); HEMATOCRIT 28.8 % (37.0-47.0); HEMOGLOBIN 9.8 g/dl (12.0-16.0); LYMPHOCYTES # 1.7 10^3/ul (0.8-2.9); LYMPHOCYTES % 27.5 % (18.0-55.0); MEAN CORPUSCULAR HEMOGLOBIN 30.4 pg (29.0-33.0); MEAN CORPUSCULAR VOLUME 89.4 fl (72.0-104.0); MEAN PLATELET VOLUME 10.4 fl (7.4-10.4); MONOCYTE # 0.6 10^3/ul (0.3-0.9); MONOCYTES % 9.2 % (0.0-13.0); NEUTROPHIL # 3.7 10^3/ul (1.6-7.5); NEUTROPHILS % 60.3 % (30.0-74.0); PLATELET COUNT 158 10^3/UL (140-415); RED BLOOD COUNT 3.22 10^6/ul (4.20-5.40); RED CELL DISTRIBUTION WIDTH 13.1 % (11.5-14.5); WHITE BLOOD COUNT 6.1 10^3/ul (4.8-10.8)
[2017-09-04 06:42] LABS: ANION GAP 11 (8-16); CALCIUM 8.3 mg/dl (8.4-10.2); CARBON DIOXIDE 21 mmol/L (21-31); CHLORIDE 108 mmol/L (97-110); CREATININE 0.56 mg/dl (0.44-1.00); GLUCOSE 88 mg/dl (70-220); MAGNESIUM 1.6 mg/dl (1.7-2.5); POTASSIUM 3.6 mmol/L (3.5-5.1); SODIUM 136 mmol/L (135-144)
[2017-09-04 06:47] LABS: BLOOD UREA NITROGEN < 2 mg/dl (7-20)
[2017-09-04 07:39] VITALS: BP 95/52; RESP 16
[2017-09-04] MEDS: FERROUS SULFATE (EC) 325 MG TAB PO SCH (08:47)
[2017-09-04] MEDS: PRENATAL VITAMIN PO SCH (08:48)
[2017-09-04] MEDS: ACETAMINOPHEN 325 MG TAB PO PRN (09:46)
[2017-09-04] MEDS ORDERED: CEPH-443 PO (10:13)
--- NOTE | 2017-09-04 10:17 | PDOCDIS ---
Discharge Instructions CONDITION Patient Condition: Stable HOME CARE INSTRUCTIONS: Diet Instructions: RegularSpecial Diet: REGULAR DIET ACTIVITY: Activity Restrictions: Slowly Increase Activity FOLLOW UP/APPOINTMENTS Follow-up Plan Please follow up with your BRASS PLATER as soon as possible to discuss antibiotics and suppression antibiotics. AIYANA BUITRAGO Sep 04, 2017 10:17
[2017-09-04 14:00] VITALS: BP 101/62; RESP 18
--- NOTE | 2017-09-04 14:30 | QN ---
Documentation Comment September 04, 2017 This patient is a 22 years old 1 para 0 about 12 weeks who came to the hospital with evidence of pyelonephritis and sepsis After taking urine culture she was placed on IV antibiotic. On examination she is doing fairly well abdomen is soft no tenderness no rebound. Her chest is clear on auscultation and percussion. No true CVA tenderness. Slight pain on the left side on deep palpation and percussion. Laboratory Tests Test 09/04/17 05:41 White Blood Count 6.110^3/ul Red Blood Count 3.2210^6/ul Hemoglobin 9.8g/dl Hematocrit 28.8% Mean Corpuscular Volume 89.4fl Mean Corpuscular Hemoglobin 30.4pg Mean Corpuscular Hemoglobin Concent 34.0g/dl Red Cell Distribution Width 13.1% Platelet Count 64340^3/UL Mean Platelet Volume 10.4fl Neutrophils % 60.3% Lymphocytes % 27.5% Monocytes % 9.2% Eosinophils % 2.6% Basophils % 0.2% Nucleated Red Blood Cells % 0.0/100WBC Neutrophils # 3.710^3/ul Lymphocytes # 1.710^3/ul Monocytes # 0.610^3/ul Eosinophils # 0.210^3/ul Basophils # 0.010^3/ul Nucleated Red Blood Cells # 0.010^3/ul Sodium Level 136mmol/L Potassium Level 3.6mmol/L Chloride Level 108mmol/L Carbon Dioxide Level 21mmol/L Anion Gap 11 Blood Urea Nitrogen < 2mg/dl Creatinine 0.56mg/dl Glucose Level 88mg/dl Calcium Level 8.3mg/dl Phosphorus Level 4.0mg/dl Magnesium Level 1.6mg/dl Albumin 3.0g/dl Current Medications Medications (Trade) Dose Ordered Sig/Nelly Route PRN Reason Start Time Stop Time Status Last Admin Dose Admin Sodium Chloride (NS) 1,000 ml @ 1,000 mls/hr Q1H ONCE IV 09/01/17 09:30 09/01/17 10:29 DC 09/01/17 10:33 Metoclopramide HCl 10 mg 10 mg ONCE ONCE IV 09/01/17 09:30 09/01/17 09:34 DC 09/01/17 10:33 Ceftriaxone Sodium (Rocephin) 50 ml @ 100 mls/hr ONCE ONCE IVPB 09/01/17 12:00 09/01/17 12:29 DC 09/01/17 12:07 Acetaminophen (Tylenol Tab) 650 mg ONCE ONCE PO 09/01/17 12:00 09/01/17 12:01 DC 09/01/17 12:07 Ondansetron HCl (Zofran Inj) 4 mg BRIDGE ORDER PRN IV NAUSEA AND/OR VOMITING 09/01/17 13:30 09/02/17 13:29 DC Acetaminophen 650 mg 650 mg ER BRIDGE PRN PO MILD PAIN/FEVER 09/01/17 13:30 09/02/17 13:29 DC Sodium Chloride (NS) 1,000 ml @ 1,000 mls/hr Q1H STAT IV 09/01/17 13:30 09/01/17 14:29 DC 09/01/17 14:36 Ferrous Sulfate (Ferrous Sulfate (Ec)) 325 mg DAILY PO 09/02/17 09:00 09/04/17 08:47 Prenat Multivit/ [place]/Iron/Folic Ac 1 tab 1 tab DAILY PO 09/02/17 09:00 09/04/17 08:48 Sodium Chloride (NS) 1,000 ml @ 60 mls/hr [id number] IV 09/01/17 14:31 09/03/17 22:35 IV Flush (NS 3 ml) 3 ml PER PROTOCOL IV 09/01/17 15:00 Metoclopramide HCl (Reglan) 10 mg Q6H PRN IV NAUSEA AND/OR VOMITING 09/01/17 15:00 Acetaminophen (Tylenol Tab) 650 mg Q6H PRN PO PAIN LEVEL 1-3 OR FEVER 09/01/17 15:00 09/04/17 09:46 Docusate Sodium 100 mg 100 mg Q12H PRN PO CONSTIPATION 09/01/17 15:00 Ceftriaxone Sodium (Rocephin) 50 ml @ 100 mls/hr Q24H IVPB 09/02/17 12:00 09/03/17 12:11 Potassium Chloride (Klor-Con 20) 40 meq ONCE STAT PO 09/02/17 08:11 09/02/17 08:15 DC 09/02/17 08:33 Potassium Chloride 40 meq 40 meq 1215 ONCE PO 09/02/17 12:15 09/02/17 12:16 DC 09/02/17 13:32 Magnesium Sulfate (Magnesium Sulfate 2 Gm/50 ml) 50 ml @ 25 mls/hr ONCE ONCE IVPB 09/02/17 09:30 09/02/17 11:29 DC 09/02/17 10:45 .Today she was discharged home with a prescription of cephalexin 500 mg every 8 hours as well as analgesics. I mentioned that she should continue a total course of antibiotic and have a follow-up visit with her platen builder up to make sure the infection in her kidneys are completely resolved. End of dictation . . RADHA NIELSON MD Sep 04, 2017 14:30
--- NOTE | 2017-09-04 15:23 | DS ---
Date/Time of Note Date/Time of Note DATE: 09/04/17 TIME: 15:22 Discharge Summary Admission/Discharge Info Admit Date/Time Sep 01, 2017 at 13:28 Discharge Date/Time Patient Condition: Fair Hx of Present Illness 22 yo F presented c/o nausea, vomiting, right flank pain, and dysuria for the past 1 day. Patient states she had severe right sided pain both anteriorly and flank area that has persisted since yesterday. She last vomited yesterday and was able to tolerate a sandwich in the ED. She denies any sick contact, dizziness, headache, chest pain, shortness of breath, or other abdominal issues. Does admit to discomfort with urination but denies any hematuria or discharge. This is patients first . Hospital Course Patient is a 22-year-old female with no significant past medical history except for recent who presents with 1 day history of right- sided flank pain found to have pyelonephritis urinary tract infection with other symptoms of pyelonephritis. Ultrasound of the kidneys did not show any perinephric stranding consistent with pyelonephritis however given patient's state patient was given IV antibiotics as well as OB consult. OB suggested IV antibiotics and to be discharged with oral antibiotics to be followed with her primary diesel maintenance technician as soon as possible after a 24-48 hour period of being afebrile. Patient's was given IV antibiotics and progressed well and had no fever for approximately 48 hours and will be discharged with a two-week course of Keflex as patient's urine was sensitive to cefazolin. He was also explained to the patient she needs to follow-up with her primary care provider and PLASTICS FABRICATION SUPERVISOR as soon as possible to discuss long-term suppression given severity of UTI. Patient understands and is glad to go home. Discharge diagnosis Right flank pain Pyelonephritis UTI Intrauterine , 12 weeks Iron deficiency anemia Hypokalemia Hypomagnesemia Home Meds Active Scripts Cephalexin* (Keflex*) 500 Mg Capsule, 500 MG PO Q8 for 14 Days, #42 CAP Prov:AIYANA BUITRAGO 09/04/17 Ferrous Sulfate* (Ferrous Sulfate*) 325 Mg Tabec, 325 MG PO DAILY, #30 TAB Prov:PHIL YOUNGER NP 11/09/15 Discontinued Reported Medications [Denies] No Conflict Check 12/24/10 Discontinued Scripts Ibuprofen* (Motrin*) 600 Mg Tab, 600 MG PO Q6H Y for PAIN AND OR ELEVATED TEMP, #30 TAB Prov:PHIL YOUNGER NP 11/09/15 Follow-up Plan Please follow up with your PLASTICS FABRICATION SUPERVISOR as soon as possible to discuss antibiotics and suppression antibiotics. Primary Care Provider Delmis Gillis Time spent on discharge: > 30 minutes Pending Labs Laboratory Tests Test 09/04/17 05:41 White Blood Count 6.110^3/ul (4.8-10.8) Red Blood Count 3.2210^6/ul (4.20-5.40) Hemoglobin 9.8g/dl (12.0-16.0) Hematocrit 28.8% (37.0-47.0) Mean Corpuscular Volume 89.4fl (72.0-104.0) Mean Corpuscular Hemoglobin 30.4pg (29.0-33.0) Mean Corpuscular Hemoglobin Concent 34.0g/dl (32.0-37.0) Red Cell Distribution Width 13.1% (11.5-14.5) Platelet Count 96341^3/UL (140-415) Mean Platelet Volume 10.4fl (7.4-10.4) Neutrophils % 60.3% (30.0-74.0) Lymphocytes % 27.5% (18.0-55.0) Monocytes % 9.2% (0.0-13.0) Eosinophils % 2.6% (0.0-7.0) Basophils % 0.2% (0.0-2.0) Nucleated Red Blood Cells % 0.0/100WBC (0.0-0.0) Neutrophils # 3.710^3/ul (1.6-7.5) Lymphocytes # 1.710^3/ul (0.8-2.9) Monocytes # 0.610^3/ul (0.3-0.9) Eosinophils # 0.210^3/ul (0.0-0.5) Basophils # 0.010^3/ul (0.0-0.1) Nucleated Red Blood Cells # 0.010^3/ul (0.0-0.0) Sodium Level 136mmol/L (135-144) Potassium Level 3.6mmol/L (3.5-5.1) Chloride Level 108mmol/L (97-110) Carbon Dioxide Level 21mmol/L (21-31) Anion Gap 11 (8-16) Blood Urea Nitrogen < 2mg/dl (7-20) Creatinine 0.56mg/dl (0.44-1.00) Glucose Level 88mg/dl (70-220) Calcium Level 8.3mg/dl (8.4-10.2) Phosphorus Level 4.0mg/dl (2.5-4.9) Magnesium Level 1.6mg/dl (1.7-2.5) Albumin 3.0g/dl (3.3-4.9) AIYANA BUITRAGO Sep 04, 2017 15:23
== END 2017-09-04 15:20 | disposition home or self-care (01) | DRG 781 ==
LOC: FTE 09:15 → MS2 13:28
PROVIDERS: ADMIT Internal Medicine; ATTEND Internal Medicine
DX: O98.811 Other maternal infectious and parasitic diseases complicating pregnancy, first trimester (principal); A41.9 Sepsis, unspecified organism; O23.01 Infections of kidney in pregnancy, first trimester; E83.42 Hypomagnesemia; O99.281 Endocrine, nutritional and metabolic diseases complicating pregnancy, first trimester; E87.6 Hypokalemia; O99.011 Anemia complicating pregnancy, first trimester; D50.9 Iron deficiency anemia, unspecified; Z87.891 Personal history of nicotine dependence; Z3A.12 12 weeks gestation of pregnancy
CPT/HCPCS: 76700; 76801; 80048; 80053; 80069; 81001; 83690; 83735; 84100; 84702; 85025; 86900; 86901; 87040; 87086; J0696; J2765; J3475; J7030

== ENCOUNTER 2017-11-30 10:41 | Outpatient (CLI) | END 2017-11-30 13:40 | disposition home or self-care (01) ==

== ENCOUNTER 2019-01-22 22:13 | Emergency (ER) | payer SELFPAY ==
[~2019-01-22] VITALS: Ht 160 cm; Wt 63.6 kg
[~2019-01-22 22:13] MED LIST changes: -DENIES; -FER325 PO; -IBUP-1542 PO; +PREN1TAB17 PO
[2019-01-22 22:40] VITALS: BP 122/87; PULSE 88; RESP 18; Ht 160 cm; Wt 63.6 kg
== END 2019-01-23 01:50 | disposition left against medical advice (07) ==
LOC: FTE 22:13
DX: Z53.21 Procedure and treatment not carried out due to patient leaving prior to being seen by health care provider (principal)